=== PATIENT | male | born 1985 | race Caucasian/White ===

== ENCOUNTER 2017-01-20 20:30 | Emergency (ER) | payer BC ==
[2017-01-20 20:46] VITALS: BP 140/81
--- NOTE | 2017-01-20 21:34 | EDM.PDOC ---
ED HPI GENERAL MEDICAL PROBLEM - General Chief Complaint: Gastrointestinal Problem Stated Complaint: BLOOD IN STOOL ABDOMINAL PAINS Time Seen by Provider: 01/20/17 20:39 Source of Information: Reports: Patient, RN Notes Reviewed History Limitations: Reports: No Limitations - History of Present Illness INITIAL COMMENTS - FREE TEXT/NARRATIVE: The patient states that he developed bloody diarrhea and abdominal cramps yesterday afternoon. He states that he went to the [facility] ED where he was examined, but no tests were performed. They recommended he undergo a colonoscopy. Unfortunately, the patient will be returning to [place], [place] either tomorrow or the day after tomorrow. The patient states that he had a similar episode 3 weeks ago, that lasted only one day. He states that this occurred the day after he was started on amoxicillin for dental infection. He states that he had taken only a single dose , and stopped after the bloody diarrhea began. He resumed the amoxicillin 3 or 4 days ago. Abdominal Pain Score (Numeric/FACES): 7 - Related Data Allergies Allergy/AdvReac Type Severity Reaction Status Date / Time No Known Allergies Allergy Verified 01/20/17 20:46 Home Meds: Home Meds . [No Known Home Meds] 01/20/17 [History] Past Medical History - Past Health History Medical/Surgical History: Denies Medical/Surgical History Social & Family History - Family History Family Medical History: Noncontributory - Tobacco Use Smoking Status *Q: Former Smoker Years of Tobacco use: 3 Packs/Tins Daily: 5 Month Tobacco Last Used: 01/20/2010 - Alcohol Use Alcohol Use History: Yes Alcohol Use Frequency: Socially - Recreational Drug Use Recreational Drug Use: No - Living Situation & Occupation Living situation: Reports: , with Spouse, with Family (4 kids) Occupation: Employed ([employer]) ED ROS GENERAL - Review of Systems Review Of Systems: See Below Constitutional: Reports: No Symptoms HEENT: Reports: No Symptoms Respiratory: Reports: No Symptoms Cardiovascular: Reports: No Symptoms Endocrine: Reports: No Symptoms GI/Abdominal: Reports: No Symptoms : Reports: No Symptoms Musculoskeletal: Reports: No Symptoms Skin: Reports: No Symptoms Neurological: Reports: Headache Psychiatric: Reports: No Symptoms Hematologic/Lymphatic: Reports: No Symptoms Immunologic: Reports: No Symptoms ED EXAM, GI/ABD - Physical Exam Exam: See Below Exam Limited By: No Limitations General Appearance: Alert, WD/WN, No Apparent Distress Eyes: Bilateral: Normal Appearance, EOMI Ears: Normal External Exam, Hearing Grossly Normal, Normal TMs Nose: Normal Inspection, No Blood Throat/Mouth: Normal Inspection, Normal Lips, Normal Voice, No Airway Compromise Head: Atraumatic, Normocephalic Neck: Normal Inspection, Full Range of Motion Respiratory/Chest: No Respiratory Distress, Lungs Clear, Normal Breath Sounds, No Accessory Muscle Use Cardiovascular: Normal Peripheral Pulses, Regular Rate, Rhythm, No Gallop, No JVD, No Murmur, No Rub GI/Abdominal Exam: Normal Bowel Sounds, Soft, Non-Tender, No Organomegaly, No Distention, No Abnormal Bruit, No Mass (Male) Exam: Deferred Back Exam: Normal Inspection, Full Range of Motion, NT Extremities: Normal Inspection, Normal Range of Motion, No Pedal Edema, Normal Capillary Refill Neurological: Alert, Oriented, Normal Cognition, No Motor/Sensory Deficits Psychiatric: Normal Affect Skin Exam: Warm, Dry, Intact, Normal Color, No Rash Lymphatic: No Adenopathy Course - Vital Signs Last Recorded V/S: Last Vital Signs Temp 36.1 C 01/20/17 20:40 Pulse 69 01/20/17 20:40 Resp 18 01/20/17 20:40 BP 140/81 01/20/17 20:40 Pulse Ox 100 01/20/17 20:40 - Orders/Labs/Meds Orders: Active Orders 24 hr Category Date Time Status CULTURE STOOL + SHIGATOX [RM] Stat Lab 01/20/17 21:21 Uncollected WBC, STOOL [OP] Stat Lab 01/20/17 21:21 Uncollected - Re-Assessments/Exams Free Text/Narrative Re-Assessment/Exam: 01/20/17 21:23 The patient has bloody diarrhea since yesterday afternoon, in addition to a single episode about 3 weeks ago. There are associated abdominal cramps, but the patient is not dizzy when he stands. The differential includes infectious diarrhea, internal hemorrhoids, AV malformation or telangiectasia, or diverticular bleed. A colonic polyp or malignancy is far less likely. He was seen at the [facility] yesterday, where they recommended a colonoscopy, which I agree with, however, the patient will be returning to [place] either tomorrow or the day after, therefore will need to make arrangements for a colonoscopy once there. For today's purposes, I have ordered a stool culture and stool WBC. 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 As the patient is otherwise asymptomatic - no lightheadedness when he stands up , and he has only had 2 episodes per day, I do not see an indication for blood work or orthostatics tonight. Departure - Departure Time of Disposition: 21:24 Disposition: Home, Self-Care 01 Condition: Good Clinical Impression: Bloody diarrhea - Discharge Information Referrals: PCP,None [Primary Care Provider] - Forms: ED Department Discharge Additional Instructions: You were seen in the emergency room for bloody diarrhea since yesterday afternoon, plus an episode 3 weeks ago. A stool culture and stool WBC count were sent. We recommend you undergo a colonoscopy, even if your symptoms resolve. This study is done by a [employer]. We recommend you find a [employer] once you return home to [place], [place]. Your stool culture results should be available by 01/23/2017. 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 You will need to sign a release of information form first. If any other problems, please do not hesitate to return to the ER. - My Orders Last 24 Hours: My Active Orders 01/20/17 21:21 CULTURE STOOL + SHIGATOX [RM] Stat WBC, STOOL [OP] Stat - Assessment/Plan Last 24 Hours: My Active Orders 01/20/17 21:21 CULTURE STOOL + SHIGATOX [RM] Stat WBC, STOOL [OP] Stat
== END 2017-01-20 22:10 | disposition home or self-care (01) ==
LOC: JD.ED 20:30
DX: R19.7 Diarrhea, unspecified (principal); Z87.891 Personal history of nicotine dependence
CPT/HCPCS: 99282; 99284